=== PATIENT | male | born 1960 | race Caucasian/White ===

== ENCOUNTER → 2017-02-13 | Outpatient (REF) | payer MEDICAID ==
[~2017-02-13] MED LIST: /IPRAINH; BACT800T; CETI10TA; NICO21DI4; PRED20TA; PRED5EL; PROV90AE; ZITH250T
[2017-02-13 13:37] LABS: ALBUMIN 3.9 GM/DL (3.2-5.2); ALKALINE PHOSPHATASE 89 U/L (45-117); ALT/SGPT 16 U/L (12-78); ANION GAP 7 MEQ/L (8-16); AST/SGOT 25 U/L (15-37); BILIRUBIN,TOTAL 0.3 MG/DL (0.2-1.0); BLOOD UREA NITROGEN 17 MG/DL (7-18); CALCIUM LEVEL 8.8 MG/DL (8.5-10.1); CARBON DIOXIDE LEVEL 28 MEQ/L (21-32); CHLORIDE LEVEL 109 MEQ/L (98-107); CHOLESTEROL LEVEL 123 MG/DL (<200); CREATININE FOR GFR 1.32 MG/DL (0.70-1.30); GLOMERULAR FILTRATION RATE 59.5 (>56); GLUCOSE, FASTING 101 MG/DL (70-105); POTASSIUM SERUM 4.4 MEQ/L (3.5-5.1); SODIUM LEVEL 144 MEQ/L (136-145); TOTAL PROTEIN 6.9 GM/DL (6.4-8.2); TRIGLYCERIDES LEVEL 49 MG/DL (<150)
[2017-02-14 14:17] LABS: %CD3+CD4+CD8+ 0.7 % (Not Estab.); %CD3+CD4+CD8- 15.3 % (Not Estab.); %CD3+CD4-CD8+ 43.5 % (Not Estab.); %CD3+CD4-CD8- 0.3 % (Not Estab.); ABS CD3+CD4+CD8+ 6 /uL (Not Estab.); ABS CD3+CD4+CD8- 122 /uL (Not Estab.); ABS CD3+CD4-CD8+ 348 /uL (Not Estab.); ABS CD3+CD4-CD8- 2 /uL (Not Estab.); CD4/CD8 NYSDOH RATIO 0.35 (Not Estab.); Eosinophils 4 % (.); HCT 43.7 % (37.5-51.0); HGB 15.1 g/dL (12.6-17.7); Monocytes 12 % (.); Neutrophils 66 % (.); WBC 4.6 x10E3/uL (3.4-10.8)
== END ==
LOC: M SFHCPLAZ 08:47
PROVIDERS: ATTEND Internal Medicine Infectious Disease
DX: B20 Human immunodeficiency virus [HIV] disease (principal); Z11.3 Encounter for screening for infections with a predominantly sexual mode of transmission; Z13.220 Encounter for screening for lipoid disorders; E55.9 Vitamin D deficiency, unspecified

== ENCOUNTER → 2017-06-16 | Outpatient (REF) | payer OTHER ==
[2017-06-16 12:20] LABS: ALBUMIN 4.1 GM/DL (3.2-5.2); ALBUMIN/GLOBULIN RATIO 1.21 (1.00-1.93); BILIRUBIN,TOTAL 0.3 MG/DL (0.2-1.0); CALCIUM LEVEL 9.3 MG/DL (8.5-10.1); CREATININE FOR GFR 1.59 MG/DL (0.70-1.30); POTASSIUM SERUM 4.4 MEQ/L (3.5-5.1); TOTAL PROTEIN 7.5 GM/DL (6.4-8.2)
[2017-06-18 14:15] LABS: %CD3+CD4+CD8+ 0.8 % (Not Estab.); %CD3+CD4+CD8- 12.9 % (Not Estab.); %CD3+CD4-CD8+ 40.6 % (Not Estab.); %CD3+CD4-CD8- 0.5 % (Not Estab.); ABS CD3+CD4+CD8+ 7 /uL (Not Estab.); ABS CD3+CD4+CD8- 116 /uL (Not Estab.); ABS CD3+CD4-CD8+ 365 /uL (Not Estab.); ABS CD3+CD4-CD8- 5 /uL (Not Estab.); CD4/CD8 NYSDOH RATIO 0.32 (Not Estab.); Eosinophils 5 % (.); HCT 43.9 % (37.5-51.0); HGB 14.6 g/dL (12.6-17.7); Monocytes 9 % (.); Neutrophils 66 % (.); WBC 4.7 x10E3/uL (3.4-10.8)
== END ==
LOC: M SFHCPLAZ 09:01
PROVIDERS: ATTEND Internal Medicine Infectious Disease
DX: B20 Human immunodeficiency virus [HIV] disease (principal); E55.9 Vitamin D deficiency, unspecified

== ENCOUNTER → 2017-10-13 | Outpatient (REF) | payer OTHER ==
[2017-10-13 13:20] LABS: ALBUMIN 3.7 GM/DL (3.2-5.2); ALBUMIN/GLOBULIN RATIO 1.23 (1.00-1.93); BILIRUBIN,TOTAL 0.2 MG/DL (0.2-1.0); CALCIUM LEVEL 9.4 MG/DL (8.5-10.1); CREATININE FOR GFR 1.53 MG/DL (0.70-1.30); POTASSIUM SERUM 4.8 MEQ/L (3.5-5.1); TOTAL PROTEIN 6.7 GM/DL (6.4-8.2)
[2017-10-14 14:11] LABS: Eosinophils 5 % (Not Estab.); HCT 43.3 % (37.5-51.0); HGB 14.8 g/dL (12.6-17.7); Monocytes 12 % (Not Estab.); Neutrophils 61 % (Not Estab.); WBC 4.4 x10E3/uL (3.4-10.8)
== END ==
LOC: M SFHCPLAZ 08:41
PROVIDERS: ATTEND Internal Medicine Infectious Disease
DX: B20 Human immunodeficiency virus [HIV] disease (principal)

== ENCOUNTER → 2018-02-10 | Outpatient (REF) | payer OTHER ==
[2018-02-10 12:27] LABS: ALBUMIN 3.9 GM/DL (3.2-5.2); ALBUMIN/GLOBULIN RATIO 1.26 (1.00-1.93); ALKALINE PHOSPHATASE 57 U/L (45-117); ALT/SGPT 27 U/L (12-78); ANION GAP 6 MEQ/L (8-16); AST/SGOT 24 U/L (7-37); BILIRUBIN,TOTAL 0.3 MG/DL (0.2-1.0); BLOOD UREA NITROGEN 18 MG/DL (7-18); CALCIUM LEVEL 9.2 MG/DL (8.5-10.1); CARBON DIOXIDE LEVEL 29 MEQ/L (21-32); CHLORIDE LEVEL 108 MEQ/L (98-107); CHOLESTEROL LEVEL 188 MG/DL (<200); CHOLESTEROL RISK RATIO 3.916 (<5); CREATININE FOR GFR 1.38 MG/DL (0.70-1.30); GLOMERULAR FILTRATION RATE 56.3 (>56); GLUCOSE, FASTING 91 MG/DL (70-100); HDL CHOLESTEROL 48 MG/DL (>40); LDL CHOLESTEROL 117.8 MG/DL (<100); NON-HDL-C 140 MG/DL; POTASSIUM SERUM 4.4 MEQ/L (3.5-5.1); SODIUM LEVEL 143 MEQ/L (136-145); TRIGLYCERIDES LEVEL 111 MG/DL (<150)
[2018-02-11 14:16] LABS: % CD8 Pos Lymph 46.8 % (12.0-35.5); %CD4 Pos Lymphs 16.2 % (30.8-58.5); ABS Eosinophils 0.2 x10E3/uL (0.0-0.4); ABS Lymphs 0.9 x10E3/uL (0.7-3.1); ABS Monocytes 0.6 x10E3/uL (0.1-0.9); ABS Neutophils 2.4 x10E3/uL (1.4-7.0); Abs CD4 Helper 146 /uL (359-1519); Abs CD8 Suppres 421 /uL (109-897); CD4/CD8 Ratio 0.35 (0.92-3.72); Eosinophils 4 % (Not Estab.); HCT 43.8 % (37.5-51.0); HGB 14.7 g/dL (13.0-17.7); Immature Grans 0 % (Not Estab.); Lymphocytes 22 % (Not Estab.); MCHC 33.6 g/dL (31.5-35.7); MCV 98 fL (79-97); Monocytes 15 % (Not Estab.); Neutrophils 58 % (Not Estab.); Platelets 220 x10E3/uL (150-379); RBC 4.46 x10E6/uL (4.14-5.80); RDW 13.5 % (12.3-15.4); WBC 4.1 x10E3/uL (3.4-10.8)
[2018-02-13 00:06] LABS: HIV-1 RNA PCR QUANT 2 LC550285 <20 copies/mL (.)
== END ==
LOC: M SFHCPLAZ 08:54
DX: B20 Human immunodeficiency virus [HIV] disease (principal); Z13.220 Encounter for screening for lipoid disorders
CPT/HCPCS: 87536

== ENCOUNTER → 2018-06-15 | Outpatient (REF) | payer OTHER ==
[2018-06-15 11:36] LABS: APPEARANCE, URINE CLEAR (CLEAR); BACTERIA, URINE AUTO NEGATIVE (NEGATIVE); BILIRUBIN, URINE AUTO NEGATIVE (NEGATIVE); BLOOD, URINE BLOOD NEGATIVE (NEGATIVE); COLOR, URINE YELLOW (YELLOW); GLUCOSE, URINE (UA) AUTO NEGATIVE (NEGATIVE); KETONE, URINE AUTO NEGATIVE (NEGATIVE); LEUKOCYTE ESTERASE, URINE AUTO NEGATIVE (NEGATIVE); NITRITE, URINE AUTO NEGATIVE (NEGATIVE); PROTEIN, URINE AUTO NEGATIVE (NEGATIVE); RBC, URINE AUTO 0 /HPF (0-3); SPECIFIC GRAVITY URINE AUTO 1.011 (1.002-1.035); SQUAMOUS EPITHELIAL CELL UR AU 0 /HPF (0-6); UROBILINOGEN, URINE AUTO 0.2 mg/dL (0.0-2.0); WBC, URINE AUTO 1 /HPF (0-3)
[2018-06-15 12:21] LABS: ALBUMIN 3.7 GM/DL (3.2-5.2); ALBUMIN/GLOBULIN RATIO 1.19 (1.00-1.93); ALKALINE PHOSPHATASE 78 U/L (45-117); ALT/SGPT 25 U/L (12-78); ANION GAP 7 MEQ/L (8-16); AST/SGOT 26 U/L (7-37); BILIRUBIN,TOTAL 0.4 MG/DL (0.2-1.0); BLOOD UREA NITROGEN 20 MG/DL (7-18); CARBON DIOXIDE LEVEL 28 MEQ/L (21-32); CHLORIDE LEVEL 108 MEQ/L (98-107); CREATININE FOR GFR 1.55 MG/DL (0.70-1.30); GLOMERULAR FILTRATION RATE 49.3 (>56); GLUCOSE, FASTING 99 MG/DL (70-100); POTASSIUM SERUM 4.6 MEQ/L (3.5-5.1); SODIUM LEVEL 143 MEQ/L (136-145); TOTAL PROTEIN 6.8 GM/DL (6.4-8.2)
[2018-06-15 13:12] LABS: CHLAMYDIA DNA AMPLIFICATION NEGATIVE (NEGATIVE); GC DNA AMPLIFICATION NEGATIVE (NEGATIVE)
== END ==
LOC: M SFHCPLAZ 09:08
DX: B20 Human immunodeficiency virus [HIV] disease (principal)

== ENCOUNTER → 2018-10-20 | Outpatient (REF) | payer OTHER ==
[2018-10-20 12:20] LABS: ALBUMIN 4.1 GM/DL (3.2-5.2); ALBUMIN/GLOBULIN RATIO 1.37 (1.00-1.93); ALKALINE PHOSPHATASE 63 U/L (45-117); ALT/SGPT 34 U/L (12-78); ANION GAP 3 MEQ/L (8-16); AST/SGOT 33 U/L (7-37); BILIRUBIN,TOTAL 0.5 MG/DL (0.2-1.0); BLOOD UREA NITROGEN 16 MG/DL (7-18); CALCIUM LEVEL 9.2 MG/DL (8.5-10.1); CARBON DIOXIDE LEVEL 31 MEQ/L (21-32); CHLORIDE LEVEL 104 MEQ/L (98-107); CREATININE FOR GFR 1.52 MG/DL (0.70-1.30); GLOMERULAR FILTRATION RATE 50.2 (>56); GLUCOSE, FASTING 101 MG/DL (70-100); POTASSIUM SERUM 4.4 MEQ/L (3.5-5.1); SODIUM LEVEL 138 MEQ/L (136-145); TOTAL PROTEIN 7.1 GM/DL (6.4-8.2)
[2018-10-26 14:09] LABS: %CD4 Pos Lymphs 16.4 % (30.8-58.5); ABS Eosinophils 0.2 x10E3/uL (0.0-0.4); ABS Lymphs 0.7 x10E3/uL (0.7-3.1); ABS Monocytes 0.5 x10E3/uL (0.1-0.9); ABS Neutophils 2.5 x10E3/uL (1.4-7.0); Abs CD4 Helper 115 /uL (359-1519); Abs CD8 Suppres 308 /uL (109-897); CD4/CD8 Ratio 0.37 (0.92-3.72); Eosinophils 4 % (Not Estab.); HCT 45.7 % (37.5-51.0); HGB 15.4 g/dL (13.0-17.7); HIV-1 RNA PCR QUANT 2 LC550285 <20 copies/mL (.); Immature Grans 0 % (Not Estab.); Lymphocytes 18 % (Not Estab.); MCH 33.3 pg (26.6-33.0); MCHC 33.7 g/dL (31.5-35.7); MCV 99 fL (79-97); Monocytes 14 % (Not Estab.); Neutrophils 63 % (Not Estab.); Platelets 203 x10E3/uL (150-379); RBC 4.63 x10E6/uL (4.14-5.80); RDW 13.5 % (12.3-15.4); WBC 3.9 x10E3/uL (3.4-10.8)
== END ==
LOC: M SFHCPLAZ 11:24
DX: B20 Human immunodeficiency virus [HIV] disease (principal)
CPT/HCPCS: 80053

== ENCOUNTER → 2019-02-16 | Outpatient (REF) | payer OTHER ==
[2019-02-16 10:46] LABS: APPEARANCE, URINE CLEAR (CLEAR); BACTERIA, URINE AUTO NEGATIVE (NEGATIVE); BILIRUBIN, URINE AUTO NEGATIVE (NEGATIVE); BLOOD, URINE BLOOD NEGATIVE (NEGATIVE); COLOR, URINE STRAW (YELLOW); GLUCOSE, URINE (UA) AUTO NEGATIVE (NEGATIVE); KETONE, URINE AUTO NEGATIVE (NEGATIVE); LEUKOCYTE ESTERASE, URINE AUTO NEGATIVE (NEGATIVE); NITRITE, URINE AUTO NEGATIVE (NEGATIVE); PROTEIN, URINE AUTO NEGATIVE (NEGATIVE); RBC, URINE AUTO 1 /HPF (0-3); SPECIFIC GRAVITY URINE AUTO 1.002 (1.002-1.035); SQUAMOUS EPITHELIAL CELL UR AU 0 /HPF (0-6); UROBILINOGEN, URINE AUTO 0.2 mg/dL (0.0-2.0); WBC, URINE AUTO 0 /HPF (0-3)
[2019-02-16 11:24] LABS: ALBUMIN 3.9 GM/DL (3.2-5.2); BILIRUBIN,TOTAL 0.4 MG/DL (0.2-1.0); CALCIUM LEVEL 8.6 MG/DL (8.5-10.1); CHOLESTEROL RISK RATIO 3.734 (<5); CREATININE FOR GFR 1.5 MG/DL (0.70-1.30); POTASSIUM SERUM 4.1 MEQ/L (3.5-5.1)
[2019-02-19 00:09] LABS: %CD4 Pos Lymphs 15.6 % (30.8-58.5); ABS Eosinophils 0.2 x10E3/uL (0.0-0.4); ABS Lymphs 0.9 x10E3/uL (0.7-3.1); ABS Monocytes 0.5 x10E3/uL (0.1-0.9); ABS Neutophils 2.5 x10E3/uL (1.4-7.0); Abs CD4 Helper 140 /uL (359-1519); Abs CD8 Suppres 414 /uL (109-897); CD4/CD8 Ratio 0.34 (0.92-3.72); Eosinophils 4 % (Not Estab.); HCT 42.4 % (37.5-51.0); HGB 14.5 g/dL (13.0-17.7); HIV-1 RNA PCR QUANT 2 LC550285 <20 copies/mL (.); Immature Grans 0 % (Not Estab.); Lymphocytes 22 % (Not Estab.); MCH 32.9 pg (26.6-33.0); MCHC 34.2 g/dL (31.5-35.7); MCV 96 fL (79-97); Monocytes 12 % (Not Estab.); Neutrophils 61 % (Not Estab.); Platelets 199 x10E3/uL (150-379); RBC 4.41 x10E6/uL (4.14-5.80); RDW 13.2 % (12.3-15.4); WBC 4.1 x10E3/uL (3.4-10.8)
== END ==
LOC: M SFHCPLAZ 08:03
PROVIDERS: ATTEND Internal Medicine Infectious Disease
DX: B20 Human immunodeficiency virus [HIV] disease (principal); N18.3 Chronic kidney disease, stage 3 (moderate)

== ENCOUNTER 2019-05-11 00:22 | Emergency (ER) | payer OTHER ==
[~2019-05-11] VITALS: Ht 190.5 cm; Wt 72.3 kg
[~2019-05-11 00:22] MED LIST changes: -/IPRAINH; +ATRO0.063
[2019-05-11] MEDS ORDERED: GENV1TAB (00:38)
[2019-05-11] MEDS ORDERED: NS 1,000 ML IV ONE (01:30)
[2019-05-11] MEDS ORDERED: ACETAMINOPHEN 500 MG TAB PO ONE (01:30)
[2019-05-11] MEDS ORDERED: cefTRIAXone SOD 1 GM in D5W MINI-BAG PLUS 50 ML IV ONE (02:15)
[2019-05-11] MEDS ORDERED: IPRATROPIUM 0.5MG/ALBUTEROL 2.5MG INH SOL UD 3ML (DUONEB)(J7620) NEB ONE (02:15)
[2019-05-11] MEDS ORDERED: AZITHROMYCIN INJ 500 MG, VIAL MATE ADAPTER 1 EACH in D5W 250 ML IV ONE (02:15)
[2019-05-11 02:49] LABS: BASO % 0.4 % (0.0-1.0); EOS % 0.2 % (0.0-3.0); HEMATOCRIT 40.6 % (42.0-52.0); HEMOGLOBIN 14.3 g/dl (13.5-17.5); LYMPH # 0.6 10^3/uL (1.5-4.5); LYMPH % 6.4 % (24.0-44.0); MEAN CORPUSCULAR HGB CONC 35.2 g/dl (32.0-36.5); MEAN CORPUSCULAR VOLUME 96.4 fl (80.0-96.0); MONO # 1.2 10^3/uL (0.0-0.8); NEUTROPHILS % 80.9 % (36.0-66.0); PLATELET COUNT, AUTOMATED 213 10^3/uL (150-450); RED BLOOD COUNT 4.21 10^6/uL (4.30-6.10); WHITE BLOOD COUNT 9.9 10^3/uL (4.0-10.0)
[2019-05-11 03:18] LABS: CALCIUM LEVEL 8.6 MG/DL (8.5-10.1); CREATININE FOR GFR 1.56 MG/DL (0.70-1.30); GLOMERULAR FILTRATION RATE 48.7 (>56); POTASSIUM SERUM 4.4 MEQ/L (3.5-5.1)
[2019-05-11] MEDS ORDERED: ZITHTAB PO (03:42)
[2019-05-11 04:33] VITALS: BP 106/54
--- NOTE | 2019-05-11 08:46 | REP ---
Chest x-ray: Two views. History: Fever and cough. Comparison study: September 25, 2009. Findings: There is a area of pulmonary parenchymal consolidation in the distribution of the right lower lobe consistent with right lower lobe pneumonia. Previous chest x-ray showed extensive pulmonary parenchymal opacification in the upper lobes bilaterally. This has cleared. The pleural angles are sharp. Lung burciaga are otherwise clear today. Heart is not enlarged. No bony abnormality is appreciated. Impression: Right lower lobe pneumonia. Electronically Signed by Rdoriguez Bernstein MD 05/11/2019 08:37 A
== END 2019-05-11 04:51 | disposition home or self-care (01) ==
LOC: M ED 00:22
DX: J18.9 Pneumonia, unspecified organism (principal); B20 Human immunodeficiency virus [HIV] disease; Z79.899 Other long term (current) drug therapy
CPT/HCPCS: 71046; 80048; 83605; 85025; 87040; 94640; 96365; 96367; 99284; J0456; J0696

== ENCOUNTER → 2019-08-03 | Outpatient (REF) | payer OTHER ==
[~2019-08-03] MED LIST changes: +GENV1TAB; +ZITHTAB PO
[2019-08-03 11:47] LABS: BILIRUBIN,TOTAL 0.6 MG/DL (0.2-1.0); CALCIUM LEVEL 9.1 MG/DL (8.5-10.1); CREATININE FOR GFR 1.71 MG/DL (0.70-1.30); GLOMERULAR FILTRATION RATE 43.8 (>56); POTASSIUM SERUM 4.5 MEQ/L (3.5-5.1)
[2019-08-03 11:55] LABS: TOTAL 25(OH) VITAMIN D 35.6 NG/ML (30.0-100.0)
[2019-08-04 15:18] LABS: % CD8 Pos Lymph 46.6 % (12.0-35.5); %CD4 Pos Lymphs 15.8 % (30.8-58.5); ABS Eosinophils 0.2 x10E3/uL (0.0-0.4); ABS Lymphs 1.2 x10E3/uL (0.7-3.1); ABS Monocytes 0.6 x10E3/uL (0.1-0.9); ABS Neutophils 2.1 x10E3/uL (1.4-7.0); Abs CD4 Helper 190 /uL (359-1519); Abs CD8 Suppres 559 /uL (109-897); CD4/CD8 Ratio 0.34 (0.92-3.72); Eosinophils 5 % (Not Estab.); HGB 15.7 g/dL (13.0-17.7); Immature Grans 0 % (Not Estab.); Lymphocytes 28 % (Not Estab.); MCH 33.4 pg (26.6-33.0); MCHC 34.9 g/dL (31.5-35.7); MCV 96 fL (79-97); Monocytes 15 % (Not Estab.); Neutrophils 51 % (Not Estab.); Platelets 207 x10E3/uL (150-450); RDW 13.7 % (12.3-15.4); WBC 4.2 x10E3/uL (3.4-10.8)
[2019-08-06 00:06] LABS: HIV-1 RNA PCR QUANT 2 LC550285 <20 copies/mL (.)
== END ==
LOC: M SFHCPLAZ 08:18
PROVIDERS: ATTEND Internal Medicine Infectious Disease
DX: B20 Human immunodeficiency virus [HIV] disease (principal); E55.9 Vitamin D deficiency, unspecified

== ENCOUNTER → 2019-08-26 | Outpatient (CLI) | payer OTHER ==
--- NOTE | 2019-08-26 14:20 | REP ---
Renal ultrasound for chronic renal disease: The right kidney measures 8.9 x 5.4 x 4.7 cm and is atrophic size. Left kidney measures 9.6 x 5.3 x 5.4 cm and is in the low normal size range. Renal cortical echogenicity is normal bilaterally. There is no hydronephrosis or calculus on the right on the left. There are no solid or cystic renal masses. The Bladder: With color Doppler assessment there are bilateral ureteral jets. The bladder is not further assessed. Impression: The right kidney is atrophic size. The left kidney is in the low normal size range. Otherwise, negative renal ultrasound. Electronically Signed by Hugo Aviles MD 08/26/2019 02:12 P
== END ==
LOC: M RAD 08:37
PROVIDERS: ATTEND Internal Medicine Infectious Disease
DX: N18.3 Chronic kidney disease, stage 3 (moderate) (principal); N26.1 Atrophy of kidney (terminal)

== ENCOUNTER → 2019-10-27 | Outpatient (CLI) | payer OTHER ==
--- NOTE | 2019-10-27 10:26 | REP ---
RENAL NUCLEAR SCAN WITH FLOW AND FUNCTION: Following the intravenous administration of 8.8 millicuries technetium 99m MAG3, immediate flow images are obtained in the posterior projection showing greater degree of perfusion of the right kidney compared to the left. Delayed renal function images are performed in the posterior projection. There is homogeneous symmetrical cortical uptake and washout with bilateral symmetrical excretion. There is no hydronephrosis bilaterally. Split function is 45.4% on the left and 54.6% on the right. [id number] is normal bilaterally at 2 minutes. T-1/2 on the left is normal at 8.74 minutes and on the right is minimally elevated at 12.0 minutes. Renal function curves appear normal in their downward slopes. There is minimal postvoid residual after voiding. IMPRESSION: Greater degree of split function on the right compared to the left. No significant compromise in renal function bilaterally scintigraphically. Electronically Signed by Hugo Mcgovern MD 10/27/2019 12:19 P
== END ==
LOC: M RAD 07:08
PROVIDERS: ATTEND Internal Medicine Nephrology
DX: N27.0 Small kidney, unilateral (principal); N18.3 Chronic kidney disease, stage 3 (moderate)
CPT/HCPCS: 78707; A9562

== ENCOUNTER → 2019-11-01 | Outpatient (REF) | payer OTHER ==
[2019-11-01 10:27] LABS: CREATININE FOR GFR 1.45 MG/DL (0.70-1.30); GLOMERULAR FILTRATION RATE 52.8 (>49); POTASSIUM SERUM 4.3 MEQ/L (3.5-5.1)
[2019-11-03 11:05] LABS: % CD8 Pos Lymph 47.7 % (12.0-35.5); %CD4 Pos Lymphs 15.7 % (30.8-58.5); ABS Eosinophils 0.1 x10E3/uL (0.0-0.4); ABS Monocytes 0.9 x10E3/uL (0.1-0.9); ABS Neutophils 6.7 x10E3/uL (1.4-7.0); Abs CD4 Helper 157 /uL (359-1519); Abs CD8 Suppres 477 /uL (109-897); CD4/CD8 Ratio 0.33 (0.92-3.72); Eosinophils 1 % (Not Estab.); HCT 44.5 % (37.5-51.0); HGB 15.7 g/dL (13.0-17.7); HIV-1 RNA PCR QUANT 2 LC550285 <20 copies/mL (.); Immature Grans 0 % (Not Estab.); Lymphocytes 12 % (Not Estab.); MCHC 35.3 g/dL (31.5-35.7); MCV 99 fL (79-97); Monocytes 10 % (Not Estab.); Neutrophils 77 % (Not Estab.); Platelets 242 x10E3/uL (150-450); RBC 4.48 x10E6/uL (4.14-5.80); RDW 13.8 % (12.3-15.4); WBC 8.8 x10E3/uL (3.4-10.8)
== END ==
LOC: M SFHCPLAZ 07:58
PROVIDERS: ATTEND Internal Medicine Infectious Disease
DX: B20 Human immunodeficiency virus [HIV] disease (principal)

== ENCOUNTER → 2020-05-02 | Outpatient (REF) | payer OTHER ==
[2020-05-02 12:48] LABS: TOTAL 25(OH) VITAMIN D 25.5 NG/ML (30.0-100.0)
[2020-05-02 12:49] LABS: ALBUMIN 3.7 GM/DL (3.2-5.2); BILIRUBIN,TOTAL 0.2 MG/DL (0.2-1.0); CALCIUM LEVEL 8.7 MG/DL (8.8-10.2); CHOLESTEROL RISK RATIO 3.581 (<5); CREATININE FOR GFR 1.35 MG/DL (0.70-1.30); GLOMERULAR FILTRATION RATE 57.4 (>49); POTASSIUM SERUM 4.1 MEQ/L (3.5-5.1); TOTAL PROTEIN 6.8 GM/DL (6.4-8.2)
[2020-05-03 14:11] LABS: % CD8 Pos Lymph 48.5 % (12.0-35.5); %CD4 Pos Lymphs 17.2 % (30.8-58.5); ABS Basophils 0.1 x10E3/uL (0.0-0.2); ABS Eosinophils 0.2 x10E3/uL (0.0-0.4); ABS Lymphs 0.9 x10E3/uL (0.7-3.1); ABS Monocytes 0.6 x10E3/uL (0.1-0.9); ABS Neutophils 3.5 x10E3/uL (1.4-7.0); Abs CD4 Helper 155 /uL (359-1519); Abs CD8 Suppres 437 /uL (109-897); CD4/CD8 Ratio 0.35 (0.92-3.72); Eosinophils 4 % (Not Estab.); HCT 44.3 % (37.5-51.0); HGB 14.9 g/dL (13.0-17.7); Immature Grans 0 % (Not Estab.); Lymphocytes 18 % (Not Estab.); MCH 33.6 pg (26.6-33.0); MCHC 33.6 g/dL (31.5-35.7); MCV 100 fL (79-97); Monocytes 11 % (Not Estab.); Neutrophils 66 % (Not Estab.); Platelets 233 x10E3/uL (150-450); RBC 4.43 x10E6/uL (4.14-5.80); RDW 12.5 % (11.6-15.4); WBC 5.3 x10E3/uL (3.4-10.8)
[2020-05-04 16:08] LABS: HIV-1 RNA PCR QUANT 2 LC550285 <20 copies/mL (.)
== END ==
LOC: M SFHCPLAZ 08:20
PROVIDERS: ATTEND Internal Medicine Infectious Disease
DX: B20 Human immunodeficiency virus [HIV] disease (principal); E55.9 Vitamin D deficiency, unspecified; N18.3 Chronic kidney disease, stage 3 (moderate)

== ENCOUNTER → 2020-10-23 | Outpatient (REF) | payer OTHER ==
[2020-10-23 11:33] LABS: ALBUMIN 4.2 GM/DL (3.2-5.2); BILIRUBIN,TOTAL 0.5 MG/DL (0.2-1.0); CALCIUM LEVEL 9.5 MG/DL (8.8-10.2); CREATININE FOR GFR 1.49 MG/DL (0.70-1.30); POTASSIUM SERUM 5.1 MEQ/L (3.5-5.1); TOTAL 25(OH) VITAMIN D 65.6 NG/ML (30.0-100.0); TOTAL PROTEIN 7.4 GM/DL (6.4-8.2)
[2020-10-25 02:07] LABS: % CD8 Pos Lymph 45.2 % (12.0-35.5); %CD4 Pos Lymphs 18.6 % (30.8-58.5); ABS Eosinophils 0.2 x10E3/uL (0.0-0.4); ABS Lymphs 0.9 x10E3/uL (0.7-3.1); ABS Monocytes 0.6 x10E3/uL (0.1-0.9); ABS Neutophils 3.2 x10E3/uL (1.4-7.0); Abs CD4 Helper 167 /uL (359-1519); Abs CD8 Suppres 407 /uL (109-897); CD4/CD8 Ratio 0.41 (0.92-3.72); Eosinophils 4 % (Not Estab.); HCT 46.1 % (37.5-51.0); HGB 16.1 g/dL (13.0-17.7); HIV-1 RNA PCR QUANT 2 LC550285 <20 copies/mL (.); Immature Grans 0 % (Not Estab.); Lymphocytes 18 % (Not Estab.); MCH 35.2 pg (26.6-33.0); MCHC 34.9 g/dL (31.5-35.7); MCV 101 fL (79-97); Monocytes 13 % (Not Estab.); Neutrophils 64 % (Not Estab.); Platelets 220 x10E3/uL (150-450); RBC 4.58 x10E6/uL (4.14-5.80); RDW 12.5 % (11.6-15.4)
== END ==
LOC: M SFHCPLAZ 08:17
PROVIDERS: ATTEND Internal Medicine Infectious Disease
DX: B20 Human immunodeficiency virus [HIV] disease (principal); E55.9 Vitamin D deficiency, unspecified

== ENCOUNTER → 2021-04-23 | Outpatient (REF) | payer OTHER ==
[2021-04-23 13:43] LABS: ALBUMIN 4.2 GM/DL (3.2-5.2); BILIRUBIN,TOTAL 0.5 MG/DL (0.2-1.0); CALCIUM LEVEL 9.5 MG/DL (8.8-10.2); CREATININE FOR GFR 1.46 MG/DL (0.70-1.30); GLOMERULAR FILTRATION RATE 52.3 (>49); POTASSIUM SERUM 4.2 MEQ/L (3.5-5.1); TOTAL PROTEIN 7.5 GM/DL (6.4-8.2)
[2021-04-23 13:55] LABS: CHOLESTEROL RISK RATIO 3.51 (<5)
[2021-04-23 14:10] LABS: TOTAL 25(OH) VITAMIN D 31.6 NG/ML (30.0-100.0)
[2021-04-25 03:07] LABS: % CD8 Pos Lymph 44.4 % (12.0-35.5); %CD4 Pos Lymphs 17.5 % (30.8-58.5); ABS Eosinophils 0.2 x10E3/uL (0.0-0.4); ABS Lymphs 0.8 x10E3/uL (0.7-3.1); ABS Monocytes 0.5 x10E3/uL (0.1-0.9); ABS Neutophils 2.6 x10E3/uL (1.4-7.0); Abs CD4 Helper 140 /uL (359-1519); Abs CD8 Suppres 355 /uL (109-897); CD4/CD8 Ratio 0.39 (0.92-3.72); Eosinophils 4 % (Not Estab.); HCT 44.4 % (37.5-51.0); HGB 15.5 g/dL (13.0-17.7); HIV-1 RNA PCR QUANT 2 LC550285 <20 copies/mL (.); Immature Grans 0 % (Not Estab.); Lymphocytes 20 % (Not Estab.); MCH 34.8 pg (26.6-33.0); MCHC 34.9 g/dL (31.5-35.7); MCV 100 fL (79-97); Monocytes 12 % (Not Estab.); Neutrophils 63 % (Not Estab.); Platelets 217 x10E3/uL (150-450); RBC 4.45 x10E6/uL (4.14-5.80); RDW 12.4 % (11.6-15.4); WBC 4.1 x10E3/uL (3.4-10.8)
== END ==
LOC: M SFHCPLAZ 09:53
PROVIDERS: ATTEND Nurse Practitioner Family
DX: E55.9 Vitamin D deficiency, unspecified (principal); Z13.220 Encounter for screening for lipoid disorders

== ENCOUNTER → 2021-10-22 | Outpatient (CLI) | payer OTHER ==
[2021-10-22 11:33] LABS: ALBUMIN 3.7 GM/DL (3.2-5.2); BILIRUBIN,TOTAL 0.3 MG/DL (0.2-1.0); CALCIUM LEVEL 9.2 MG/DL (8.8-10.2); CREATININE FOR GFR 1.3 MG/DL (0.70-1.30); GLOMERULAR FILTRATION RATE 59.5 (>49); POTASSIUM SERUM 4.2 MEQ/L (3.5-5.1); TOTAL PROTEIN 6.7 GM/DL (6.4-8.2)
[2021-10-22 12:18] LABS: HEPATITIS C VIRUS ABY INDEX 0.1 INDEX (<0.8)
[2021-10-23 16:11] LABS: % CD8 Pos Lymph 46.7 % (12.0-35.5); %CD4 Pos Lymphs 21.1 % (30.8-58.5); ABS Eosinophils 0.2 x10E3/uL (0.0-0.4); ABS Lymphs 0.9 x10E3/uL (0.7-3.1); ABS Monocytes 0.6 x10E3/uL (0.1-0.9); ABS Neutophils 2.8 x10E3/uL (1.4-7.0); Abs CD4 Helper 190 /uL (359-1519); Abs CD8 Suppres 420 /uL (109-897); CD4/CD8 Ratio 0.45 (0.92-3.72); Eosinophils 4 % (Not Estab.); HCT 42.6 % (37.5-51.0); HGB 14.7 g/dL (13.0-17.7); HIV-1 RNA PCR QUANT 2 LC550285 <20 copies/mL (.); Immature Grans 0 % (Not Estab.); Lymphocytes 21 % (Not Estab.); MCH 34.8 pg (26.6-33.0); MCHC 34.5 g/dL (31.5-35.7); MCV 101 fL (79-97); Monocytes 12 % (Not Estab.); Neutrophils 62 % (Not Estab.); Platelets 213 x10E3/uL (150-450); RBC 4.22 x10E6/uL (4.14-5.80); WBC 4.5 x10E3/uL (3.4-10.8)
== END ==
LOC: M PLALAB 08:22
PROVIDERS: ATTEND Internal Medicine Infectious Disease
DX: B20 Human immunodeficiency virus [HIV] disease (principal)

== ENCOUNTER → 2022-04-22 | Outpatient (CLI) | payer OTHER ==
[2022-04-22 14:35] LABS: ALBUMIN 3.7 GM/DL (3.2-5.2); ALT/SGPT 14 U/L (12-78); BILIRUBIN,TOTAL 0.4 MG/DL (0.2-1.0); BLOOD UREA NITROGEN 9 MG/DL (7-18); CALCIUM LEVEL 8.6 MG/DL (8.8-10.2); CARBON DIOXIDE LEVEL 30 MEQ/L (21-32); CHLORIDE LEVEL 108 MEQ/L (98-107); CHOLESTEROL LEVEL 124 MG/DL (<200); CHOLESTEROL RISK RATIO 2.638 (<5); CREATININE FOR GFR 1.57 MG/DL (0.70-1.30); GLOMERULAR FILTRATION RATE 47.9 (>49); GLUCOSE, FASTING 91 MG/DL (70-100); HDL CHOLESTEROL 47 MG/DL (>40); LDL CHOLESTEROL 60 MG/DL (<100); NON-HDL-C 77 MG/DL; POTASSIUM SERUM 4.5 MEQ/L (3.5-5.1); SODIUM LEVEL 141 MEQ/L (136-145); TOTAL PROTEIN 6.6 GM/DL (6.4-8.2); TRIGLYCERIDES LEVEL 87 MG/DL (<150)
== END ==
LOC: M PLALAB 09:25
PROVIDERS: ATTEND Internal Medicine Infectious Disease
DX: B20 Human immunodeficiency virus [HIV] disease (principal); N18.30 Chronic kidney disease, stage 3 unspecified

== ENCOUNTER → 2022-10-28 | Outpatient (CLI) | payer OTHER ==
[2022-10-28 16:18] LABS: ALBUMIN 4.4 G/DL (3.2-5.2)
[2022-10-28 16:23] LABS: CALCIUM LEVEL 9.6 MG/DL (8.3-10.6)
[2022-10-28 16:26] LABS: BILIRUBIN,TOTAL 0.5 MG/DL (0.3-1.2); CREATININE FOR GFR 1.39 MG/DL (0.70-1.30); GLOMERULAR FILTRATION RATE 54.9 (>49); TOTAL PROTEIN 7.3 G/DL (5.7-8.2)
[2022-10-28 16:29] LABS: TOTAL 25(OH) VITAMIN D 24.8 NG/ML (20.0-100.0)
[2022-10-28 20:29] LABS: HEMOGLOBIN A1c 5.2 % (4.0-6.0)
[2022-10-30 02:07] LABS: % CD8 Pos Lymph 38.2 % (12.0-35.5); %CD4 Pos Lymphs 15.2 % (30.8-58.5); ABS Eosinophils 0.1 x10E3/uL (0.0-0.4); ABS Lymphs 0.9 x10E3/uL (0.7-3.1); ABS Monocytes 0.6 x10E3/uL (0.1-0.9); ABS Neutophils 3.6 x10E3/uL (1.4-7.0); Abs CD4 Helper 137 /uL (359-1519); Abs CD8 Suppres 344 /uL (109-897); Eosinophils 2 % (Not Estab.); HCT 46.7 % (37.5-51.0); HGB 16.6 g/dL (13.0-17.7); HIV-1 RNA PCR QUANT 2 LC550285 <20 copies/mL (.); Immature Grans 0 % (Not Estab.); Lymphocytes 18 % (Not Estab.); MCH 34.7 pg (26.6-33.0); MCHC 35.5 g/dL (31.5-35.7); MCV 98 fL (79-97); Monocytes 11 % (Not Estab.); Neutrophils 68 % (Not Estab.); Platelets 242 x10E3/uL (150-450); RBC 4.79 x10E6/uL (4.14-5.80); RDW 12.4 % (11.6-15.4); WBC 5.2 x10E3/uL (3.4-10.8)
== END ==
LOC: M PLALAB 10:07
PROVIDERS: ATTEND Internal Medicine Infectious Disease
DX: B20 Human immunodeficiency virus [HIV] disease (principal); N18.30 Chronic kidney disease, stage 3 unspecified; E55.9 Vitamin D deficiency, unspecified

== ENCOUNTER → 2023-04-29 | Outpatient (CLI) | payer OTHER ==
[2023-04-29 14:10] LABS: APPEARANCE, URINE CLEAR (CLEAR); BACTERIA, URINE AUTO NEGATIVE (NEGATIVE); BILIRUBIN, URINE AUTO NEGATIVE (NEGATIVE); BLOOD, URINE BLOOD NEGATIVE (NEGATIVE); COLOR, URINE STRAW (YELLOW); GLUCOSE, URINE (UA) AUTO 1+ mg/dL (NEGATIVE); KETONE, URINE AUTO NEGATIVE (NEGATIVE); LEUKOCYTE ESTERASE, URINE AUTO NEGATIVE (NEGATIVE); NITRITE, URINE AUTO NEGATIVE (NEGATIVE); PROTEIN, URINE AUTO NEGATIVE (NEGATIVE); RBC, URINE AUTO 0 /HPF (0-3); SPECIFIC GRAVITY URINE AUTO 1.006 (1.002-1.035); SQUAMOUS EPITHELIAL CELL UR AU 0 /HPF (0-6); UROBILINOGEN, URINE AUTO 0.2 mg/dL (0.0-2.0); WBC, URINE AUTO 0 /HPF (0-3)
[2023-04-29 14:43] LABS: ALBUMIN 4.1 G/DL (3.2-5.2); ALKALINE PHOSPHATASE 67 U/L (46-116); ALT/SGPT 17 U/L (7.0-40); AST/SGOT 24 U/L (<34); BILIRUBIN,TOTAL 0.5 MG/DL (0.3-1.2); BLOOD UREA NITROGEN 19 MG/DL (9-23); CARBON DIOXIDE LEVEL 28 MMOL/L (20-31); CHLORIDE LEVEL 107 MMOL/L (98-107); CREATININE FOR GFR 1.45 MG/DL (0.70-1.30); GLOMERULAR FILTRATION RATE 52.3 (>49); GLUCOSE, FASTING 104 MG/DL (74-106); POTASSIUM SERUM 4.7 MMOL/L (3.5-5.1); SODIUM LEVEL 139 MMOL/L (136-145)
[2023-04-29 22:13] LABS: GC DNA AMPLIFICATION NEGATIVE (NEGATIVE)
[2023-04-30 14:09] LABS: %CD4 Pos Lymphs 16.5 % (30.8-58.5); ABS Basophils 0.1 x10E3/uL (0.0-0.2); ABS Eosinophils 0.1 x10E3/uL (0.0-0.4); ABS Lymphs 0.9 x10E3/uL (0.7-3.1); ABS Monocytes 0.6 x10E3/uL (0.1-0.9); ABS Neutophils 4.3 x10E3/uL (1.4-7.0); Abs CD4 Helper 149 /uL (359-1519); Abs CD8 Suppres 351 /uL (109-897); CD4/CD8 Ratio 0.42 (0.92-3.72); Eosinophils 2 % (Not Estab.); HCT 47.2 % (37.5-51.0); HGB 15.9 g/dL (13.0-17.7); Immature Grans 0 % (Not Estab.); Lymphocytes 15 % (Not Estab.); MCH 34.3 pg (26.6-33.0); MCHC 33.7 g/dL (31.5-35.7); MCV 102 fL (79-97); Monocytes 9 % (Not Estab.); Neutrophils 73 % (Not Estab.); Platelets 221 x10E3/uL (150-450); RBC 4.64 x10E6/uL (4.14-5.80); RDW 12.8 % (11.6-15.4); WBC 5.9 x10E3/uL (3.4-10.8)
[2023-04-30 19:07] LABS: HIV-1 RNA PCR QUANT 2 LC550285 <20 copies/mL (.)
== END ==
LOC: M PLALAB 10:22
PROVIDERS: ATTEND Internal Medicine Infectious Disease
DX: B20 Human immunodeficiency virus [HIV] disease (principal); N18.30 Chronic kidney disease, stage 3 unspecified

== ENCOUNTER → 2023-10-28 | Outpatient (CLI) | payer OTHER ==
[2023-10-28 19:59] LABS: APPEARANCE, URINE CLEAR (CLEAR); BACTERIA, URINE AUTO 1+ (NEGATIVE); BILIRUBIN, URINE AUTO NEGATIVE (NEGATIVE); BLOOD, URINE BLOOD NEGATIVE (NEGATIVE); COLOR, URINE STRAW (YELLOW); GLUCOSE, URINE (UA) AUTO NEGATIVE (NEGATIVE); KETONE, URINE AUTO TRACE mg/dL (NEGATIVE); LEUKOCYTE ESTERASE, URINE AUTO NEGATIVE (NEGATIVE); NITRITE, URINE AUTO NEGATIVE (NEGATIVE); PROTEIN, URINE AUTO NEGATIVE (NEGATIVE); RBC, URINE AUTO 0 /HPF (0-3); SQUAMOUS EPITHELIAL CELL UR AU 0 /HPF (0-6); UROBILINOGEN, URINE AUTO 0.2 mg/dL (0.0-2.0); WBC, URINE AUTO 0 /HPF (0-3)
[2023-10-28 20:35] LABS: ALBUMIN 4.3 G/DL (3.2-5.2); BILIRUBIN,TOTAL 0.6 MG/DL (0.3-1.2); CALCIUM LEVEL 9.9 MG/DL (8.3-10.6); CREATININE FOR GFR 1.49 MG/DL (0.70-1.30); GLOMERULAR FILTRATION RATE 50.5 (>49); PHOSPHORUS LEVEL 3.3 MG/DL (2.4-5.1); POTASSIUM SERUM 5.3 MMOL/L (3.5-5.1); TOTAL PROTEIN 7.4 G/DL (5.7-8.2)
== END ==
LOC: M PLALAB 13:19
PROVIDERS: ATTEND Internal Medicine Infectious Disease
DX: B20 Human immunodeficiency virus [HIV] disease (principal); N18.30 Chronic kidney disease, stage 3 unspecified

== ENCOUNTER → 2024-04-27 | Outpatient (CLI) | payer OTHER ==
[2024-04-27 16:05] LABS: ALBUMIN 4.3 G/DL (3.2-5.2); BILIRUBIN,TOTAL 0.7 MG/DL (0.3-1.2); CALCIUM LEVEL 9.7 MG/DL (8.3-10.6); CREATININE FOR GFR 1.62 MG/DL (0.70-1.30); GLOMERULAR FILTRATION RATE 45.9 (>49); POTASSIUM SERUM 4.7 MMOL/L (3.5-5.1); TOTAL PROTEIN 7.3 G/DL (5.7-8.2)
[2024-04-30 03:07] LABS: % CD8 Pos Lymph 41.3 % (12.0-35.5); %CD4 Pos Lymphs 15.7 % (30.8-58.5); ABS Basophils 0.1 x10E3/uL (0.0-0.2); ABS Eosinophils 0.1 x10E3/uL (0.0-0.4); ABS Lymphs 1.1 x10E3/uL (0.7-3.1); ABS Monocytes 0.3 x10E3/uL (0.1-0.9); Abs CD4 Helper 173 /uL (359-1519); Abs CD8 Suppres 454 /uL (109-897); CD4/CD8 Ratio 0.38 (0.92-3.72); Eosinophils 2 % (Not Estab.); HCT 46.5 % (37.5-51.0); HGB 15.9 g/dL (13.0-17.7); HIV-1 RNA PCR QUANT 2 LC550285 <20 copies/mL (.); Immature Grans 0 % (Not Estab.); Lymphocytes 25 % (Not Estab.); MCH 35.1 pg (26.6-33.0); MCHC 34.2 g/dL (31.5-35.7); MCV 103 fL (79-97); Monocytes 7 % (Not Estab.); Neutrophils 65 % (Not Estab.); Platelets 194 x10E3/uL (150-450); RBC 4.53 x10E6/uL (4.14-5.80); RDW 12.3 % (11.6-15.4); WBC 4.5 x10E3/uL (3.4-10.8)
== END ==
LOC: M PLALAB 12:15
PROVIDERS: ATTEND Internal Medicine Infectious Disease
DX: B20 Human immunodeficiency virus [HIV] disease (principal)

== ENCOUNTER 2024-11-01 12:07 | Emergency (ER) | payer MEDICARE, OTHER ==
[~2024-11-01] VITALS: Ht 182.9 cm; Wt 71.7 kg
[2024-11-01] MEDS: BOOSTRIX VACCINE (TETANUS/DIPHTH/ACEL. PERTUSSIS) 0.5ML SYR IM.IMMUN ONE (12:33)
[2024-11-01] MEDS: LIDOCAINE 1% MDV 20ML VIAL IM ONE (14:30)
[2024-11-01] MEDS: ceFAZolin SOD 2 GM in IV 1 EA IV ONE (14:34)
[2024-11-01 15:16] VITALS: BP 125/69; TEMP 99.1; O2SAT 98
== END 2024-11-01 15:53 | disposition home or self-care (01) ==
LOC: M ED 12:07
DX: S62.633B Displaced fracture of distal phalanx of left middle finger, initial encounter for open fracture (principal); S61.213A Laceration without foreign body of left middle finger without damage to nail, initial encounter; S63.241A Subluxation of distal interphalangeal joint of left index finger, initial encounter; W29.3XXA Contact with powered garden and outdoor hand tools and machinery, initial encounter; F17.200 Nicotine dependence, unspecified, uncomplicated; Y92.008 Other place in unspecified non-institutional (private) residence as the place of occurrence of the external cause; Y93.89 Activity, other specified; Y99.9 Unspecified external cause status; Z23 Encounter for immunization; Z79.2 Long term (current) use of antibiotics; Z79.899 Other long term (current) drug therapy
CPT/HCPCS: 12001; 73140; 90471; 90715; 96365; 99283; J0690

== ENCOUNTER → 2024-11-17 | Outpatient (CLI) | payer MEDICARE | LOC: M SOG 07:44 | PROVIDERS: ATTEND Physician Assistant | DX: S62.633A Displaced fracture of distal phalanx of left middle finger, initial encounter for closed fracture (principal); Y93.9 Activity, unspecified; Y92.9 Unspecified place or not applicable ==

== ENCOUNTER → 2024-11-22 | Outpatient (CLI) | payer MEDICARE, MEDICAID ==
[2024-11-22 13:36] LABS: ALBUMIN 3.6 G/DL (3.2-5.2); BILIRUBIN,TOTAL 0.2 MG/DL (0.3-1.2); CALCIUM LEVEL 10.3 MG/DL (8.3-10.6); CHOLESTEROL RISK RATIO 3.48 (<5); CREATININE FOR GFR 1.63 MG/DL (0.70-1.30); GLOMERULAR FILTRATION RATE 45.4 (>49); HDL CHOLESTEROL 46.5 MG/DL (>40); LDL CHOLESTEROL 91.7 MG/DL (<100); NON-HDL-C 115.5 MG/DL; TOTAL PROTEIN 6.8 G/DL (5.7-8.2)
[2024-11-23 14:07] LABS: % CD4+ LYMPHS 19.1 % (30.8-58.5); ABSOLUTE CD4 HELPER 210 /uL (359-1519); BASOPHILS 1 % (Not Estab.); BASOPHILS ABSOLUTE 0.1 x10E3/uL (0.0-0.2); EOSINOPHILS 4 % (Not Estab.); EOSINOPHILS ABSOLUTE 0.2 x10E3/uL (0.0-0.4); HCT 46.7 % (37.5-51.0); HGB 15.7 g/dL (13.0-17.7); LYMPHOCYTES 19 % (Not Estab.); LYMPHOCYTES ABSOLUTE 1.1 x10E3/uL (0.7-3.1); MCH 35.2 pg (26.6-33.0); MCHC 33.6 g/dL (31.5-35.7); MCV 105 fL (79-97); MONOCYTES 12 % (Not Estab.); MONOCYTES ABSOLUTE 0.7 x10E3/uL (0.1-0.9); NEUTROPHILS 64 % (Not Estab.); NEUTROPHILS ABSOLUTE 3.6 x10E3/uL (1.4-7.0); PLT 228 x10E3/uL (150-450); RBC 4.46 x10E6/uL (4.14-5.80); RDW 12.3 % (11.6-15.4); WBC 5.7 x10E3/uL (3.4-10.8)
[2024-11-25 11:53] LABS: HIV-1 RNA PCR QUANT 2 NOT DETECTED copies/mL (NOT DETECTED); HIV-1 RNA PCR QUANT 3 NOT DETECTED (NOT DETECTED)
== END ==
LOC: M PLALAB 09:20
PROVIDERS: ATTEND Internal Medicine Infectious Disease
DX: B20 Human immunodeficiency virus [HIV] disease (principal); N18.30 Chronic kidney disease, stage 3 unspecified

== ENCOUNTER → 2025-01-12 | Outpatient (CLI) | payer MEDICARE, OTHER, MEDICAID | LOC: M SOG 07:51 | PROVIDERS: ATTEND Physician Assistant | DX: S62.633B Displaced fracture of distal phalanx of left middle finger, initial encounter for open fracture (principal); M19.042 Primary osteoarthritis, left hand; X58.XXXA Exposure to other specified factors, initial encounter; Y92.9 Unspecified place or not applicable; Y99.9 Unspecified external cause status; Y93.9 Activity, unspecified ==

== ENCOUNTER → 2025-06-02 | Outpatient (CLI) | payer MEDICARE, MEDICAID ==
[2025-06-02 15:43] LABS: BASO # 0.1 10^3/uL (0.0-0.2); BASO % 0.9 % (0.0-1.0); EOS # 0.2 10^3/uL (0.0-0.5); EOS % 3.8 % (0.0-3.0); LYMPH # 1.1 10^3/uL (1.5-5.0); LYMPH % 18.8 % (24.0-44.0); MONO # 0.7 10^3/uL (0.0-0.8); MONO % 12.6 % (2.0-8.0); NEUTROPHILS # 3.7 10^3/uL (1.5-8.5); NEUTROPHILS % 63.6 % (36.0-66.0); PLATELET COUNT, AUTOMATED 203 10^3/uL (150-450)
[2025-06-02 16:18] LABS: ALT/SGPT 20.0 U/L (7.0-40); AST/SGOT 30.0 U/L (<34); CALCIUM LEVEL 9.4 MG/DL (8.3-10.6); CARBON DIOXIDE LEVEL 28.0 MMOL/L (20-31); CHLORIDE LEVEL 108.0 MMOL/L (98-107); CHOLESTEROL LEVEL 93.0 MG/DL (<200); CHOLESTEROL RISK RATIO 2.11 (<5); CREATININE FOR GFR 1.46 MG/DL (0.70-1.30); GLOMERULAR FILTRATION RATE 53.0 (>49); LDL CHOLESTEROL 41.7 MG/DL (<100); NON-HDL-C 49.1 MG/DL; POTASSIUM SERUM 4.8 MMOL/L (3.5-5.1); SODIUM LEVEL 145.0 MMOL/L (136-145); TRIGLYCERIDES LEVEL 37.0 MG/DL (<150)
[2025-06-02 16:57] LABS: FREE T4 1.13 NG/DL (0.89-1.76)
[2025-06-04 17:39] LABS: % CD4 15 % (30-61); %CD8 43 % (12-42); ABSOLUTE CD4 CELLS 140 cells/uL (490-1740); ABSOLUTE CD8 CELLS 397 cells/uL (180-1170); ABSOLUTE LYMPHOCYTES 914 cells/uL (850-3900); CD4 CD8 RATIO 0.35 (0.86-5.00)
[2025-06-06 05:30] LABS: HIV-1 RNA PCR QUANT 2 NOT DETECTED copies/mL (NOT DETECTED); HIV-1 RNA PCR QUANT 3 NOT DETECTED (NOT DETECTED)
== END ==
LOC: M PLALAB 11:35
PROVIDERS: ATTEND Nurse Practitioner Family
DX: Z00.00 Encounter for general adult medical examination without abnormal findings (principal); R53.83 Other fatigue; E55.9 Vitamin D deficiency, unspecified; N18.31 Chronic kidney disease, stage 3a; B20 Human immunodeficiency virus [HIV] disease; E78.2 Mixed hyperlipidemia